=== PATIENT | male | born 1950 | race Asian ===

== ENCOUNTER 2019-03-20 08:13 | Emergency (ER) | payer OTHER ==
[2019-03-20] MEDS: METHYLPREDNISOLONE 125 MG INJ IM (09:18)
[2019-03-20] MEDS: ALBUTEROL 0.083% (NEB) 2.5 MG/3 ML AMP NEB (09:29)
[2019-03-20] MEDS: IPRATROPIUM (NEB) 0.5 MG/2.5 ML AMP NEB (09:29)
== END 2019-03-20 11:16 | disposition home or self-care (01) ==
LOC: FTE 08:13
DX: J40 Bronchitis, not specified as acute or chronic (principal); I10 Essential (primary) hypertension; E11.9 Type 2 diabetes mellitus without complications; J18.1 Lobar pneumonia, unspecified organism; J90 Pleural effusion, not elsewhere classified
CPT/HCPCS: 71045; 94664; 96372; 99284-25

== ENCOUNTER 2019-06-25 12:03 | Inpatient (IN) | payer OTHER ==
[~2019-06-25 12:03] MED LIST: ETOMIDATE 20 MG INJ; SUCCINYLCHOLINE CHLORIDE 100 MG/5 ML SYG IV
[2019-06-25] MEDS: ACETAMINOPHEN 650 MG SUPP PR (12:48)
[2019-06-25] MEDS: CEFEPIME 1GM/50 ML (PMX) 50 ML IVPB (12:49)
[2019-06-25] MEDS: SODIUM CHLORIDE 0.9% 1L BAG IV* (12:49)
[2019-06-25 13:01] LABS: ABNORMAL IP MESSAGE 1; HEMATOCRIT 32.7 % (42.0-52.0); HEMOGLOBIN 9.8 g/dl (14.0-18.0); MEAN CORPUSCULAR HEMOGLOBIN 28.3 pg (29.0-33.0); MEAN CORPUSCULAR VOLUME 94.5 fl (82.0-101.0); MEAN PLATELET VOLUME 9.1 fl (7.4-10.4); NUCLEATED RED BLOOD CELLS% 0.1 /100WBC (0.0-0.0); PLATELET COUNT 288 10^3/UL (140-415); POSITIVE DIFF @See below; RED BLOOD COUNT 3.46 10^6/ul (4.70-6.10); RED CELL DISTRIBUTION WIDTH 15.7 % (11.5-14.5)
[2019-06-25 13:01] LABS: WHITE BLOOD COUNT 28.3 10^3/ul (4.8-10.8)
[2019-06-25] MEDS: MIDAZOLAM (DRIP) 50 mg/50 mL 50 ML IV (13:12)
[2019-06-25 13:21] LABS: INR 1.04; PROTIME 13.7 Sec (11.9-14.9); PT RATIO 1.1
[2019-06-25 13:22] LABS: PARTIAL THROMBOPLASTIN TIME 33.5 Sec (23.0-35.0)
[2019-06-25] MEDS: VANCOMYCIN 1 GM (PMX) 250 ML IVPB (13:22)
[2019-06-25 13:25] LABS: ADD MAN DIFF? YES; ALANINE AMINOTRANSFERASE 16 IU/L (13-69); ALBUMIN 2.3 g/dl (3.3-4.9); ALBUMIN/GLOBULIN RATIO 0.74; ALKALINE PHOSPHATASE 93 IU/L (42-121); ANION GAP 1 (5-13); ASPARTATE AMINO TRANSFERASE 17 IU/L (15-46); BILIRUBIN,INDIRECT 0.5 mg/dl (0-1.1); BILIRUBIN,TOTAL 0.5 mg/dl (0.2-1.3); BLOOD UREA NITROGEN 30 mg/dl (7-20); CARBON DIOXIDE 37 mmol/L (21-31); CHLORIDE 106 mmol/L (97-110); CREATININE 1.05 mg/dl (0.61-1.24); Estimated GFR > 60 mL/min (>60); GLUCOSE 98 mg/dl (70-220); LIPASE 35 U/L (23-300); SODIUM 144 mmol/L (135-144); TOTAL PROTEIN 5.4 g/dl (6.1-8.1)
[2019-06-25 13:27] LABS: POTASSIUM 2.9 mmol/L (3.5-5.1)
[2019-06-25 13:35] LABS: CALCIUM 14.8 mg/dl (8.4-10.2)
[2019-06-25 13:36] LABS: TROPONIN-I 0.015 ng/ml (0.000-0.120)
[2019-06-25 13:36] LABS: LACTIC ACID 2.4 mmol/L (0.5-2.0)
[2019-06-25 13:51] LABS: ANISOCYTOSIS 1+ (0-0); BAND NEUTROPHILS #M 1.6 10^3/ul (0.0-0.6); BAND NEUTROPHILS % (M) 6 % (0-4); HYPOCHROMASIA 1+ (0-0); LYMPHOCYTES #M 1.6 10^3/ul (0.8-2.9); LYMPHOCYTES % (M) 6 % (15-51); MICROCYTOSIS 1+ (0-0); MYELOCYTES #M 0.2 10^3/ul (0.0-0.0); MYELOCYTES % (M) 1 % (0-0); PLATELET ESTIMATE NORMAL; POLYCHROMASIA 1+ (0-0); SEG NEUT #M 25.1 10^3/ul (1.6-7.5); SEGMENTED NEUTROPHILS (M) % 87 % (39-77)
[2019-06-25] MEDS: MAGNESIUM SULFATE 2 GM/50 ML 50 ML IVPB (14:05)
[2019-06-25] MEDS: POTASSIUM CHLORIDE 100 ML IVPB ×3 (14:05→21:13)
[2019-06-25] MEDS ORDERED: ONDANSETRON 4 MG INJ IV (15:00)
[2019-06-25] MEDS ORDERED: VANCOMYCIN IV PER PHARMACY XX (15:00)
[2019-06-25] MEDS ORDERED: NACL 0.9% 3 ML SYG IV (15:00)
[2019-06-25] MEDS: NS + KCL 20 MEQ 1,000 ML IV (15:41)
[2019-06-25 15:56] LABS: LACTIC ACID 1.7 mmol/L (0.5-2.0)
[2019-06-25] MEDS ORDERED: DEXTROSE 50% 50 ML SYRINGE IV ×2 (18:00)
[2019-06-25] MEDS ORDERED: GLUCOSE GEL 15 GRAM TUBE BUCCAL (18:00)
[2019-06-25] MEDS ORDERED: GLUCOSE GEL 15 GRAM TUBE PO ×2 (18:00)
[2019-06-25] MEDS ORDERED: GLUCAGON 1 MG INJ IM (18:00)
[2019-06-25] MEDS: NORepinephrine 8MG/250 ML (PMX 250 ML IV (18:45)
[2019-06-25 18:50] LABS: ANION GAP 0 (5-13); BLOOD UREA NITROGEN 29 mg/dl (7-20); CARBON DIOXIDE 31 mmol/L (21-31); CHLORIDE 113 mmol/L (97-110); CREATININE 0.94 mg/dl (0.61-1.24); Estimated GFR > 60 mL/min (>60); GLUCOSE 94 mg/dl (70-220); SODIUM 144 mmol/L (135-144)
[2019-06-25 18:57] LABS: POTASSIUM 2.5 mmol/L (3.5-5.1)
[2019-06-25] MEDS: PIPER-TAZO 3.375 GM IV (PMX) 100 ML IVPB (18:59)
[2019-06-25] MEDS: FAMOTIDINE 20 MG INJ IV (18:59)
[2019-06-25] MEDS: INSULIN ASPART [NOVOLOG] 3 ML PEN SC ×2 (19:00→20:48)
[2019-06-25 19:23] LABS: LACTIC ACID 1.9 mmol/L (0.5-2.0)
[2019-06-25 20:21] LABS: PARATHYROID HORMONE 13.1 pg/ml (24.0-73.0)
[2019-06-25 20:35] LABS: MAGNESIUM 2.6 mg/dl (1.7-2.5)
[2019-06-25] MEDS: CALCITONIN SALMON INJ 200 UNITS/ML SYG SC (21:47)
[2019-06-25] MEDS: ZOLEDRONIC ACID 4 MG in SOD CHLORIDE 0.9% 100 ML IVPB (21:47)
[2019-06-25 21:48] LABS: AADO2 Arterial 78.6 mmHg (7.0-24.0); Allen Test ACCEPTAB; Arterial Base Excess 2.8 mmol/L (-3.0-3); Arterial Blood Gas Oxygen Sat 97.2 mmHG (95.0-98.0); Arterial COHb 0.3 % (0.0-3.0); Arterial Fraction of Oxyhgb 96.4 % (93.0-99.0); Arterial HCO3 25.6 mmol/L (22.0-26.0); Arterial MetHb 0.5 % (0.0-1.5); Arterial pCO2 32.3 mmhg (35-45); MODE VENT - AC; Site Right Radial
[2019-06-26] MEDS: PIPER-TAZO 3.375 GM IV (PMX) 100 ML IVPB ×4 (00:25→18:30)
[2019-06-26] MEDS: NS + KCL 20 MEQ 1,000 ML IV ×4 (00:26→22:51)
[2019-06-26] MEDS: INSULIN ASPART [NOVOLOG] 3 ML PEN SC ×6 (00:59→22:28)
[2019-06-26 01:18] LABS: ANION GAP 1 (5-13); BLOOD UREA NITROGEN 28 mg/dl (7-20); CARBON DIOXIDE 32 mmol/L (21-31); CHLORIDE 113 mmol/L (97-110); CREATININE 1.08 mg/dl (0.61-1.24); Estimated GFR > 60 mL/min (>60); GLUCOSE 90 mg/dl (70-220); SODIUM 146 mmol/L (135-144)
[2019-06-26 01:31] LABS: CALCIUM 14.4 mg/dl (8.4-10.2); POTASSIUM 2.9 mmol/L (3.5-5.1)
[2019-06-26] MEDS: ACCU-CHEK XX (01:39)
[2019-06-26] MEDS: POTASSIUM CHLORIDE 100 ML IVPB ×3 (02:05→05:59)
[2019-06-26 05:05] LABS: ADD MAN DIFF? NO
[2019-06-26 05:10] LABS: WHITE BLOOD COUNT 25.7 10^3/ul (4.8-10.8)
[2019-06-26 05:10] LABS: ABNORMAL IP MESSAGE 1; BASOPHIL # 0.1 10^3/ul (0.0-0.1); BASOPHILS % 0.4 % (0.0-2.0); EOSINOPHILS # 0.2 10^3/ul (0.0-0.5); EOSINOPHILS % 0.8 % (0.0-7.0); HEMATOCRIT 27.1 % (42.0-52.0); HEMOGLOBIN 8.1 g/dl (14.0-18.0); LYMPHOCYTES # 0.8 10^3/ul (0.8-2.9); LYMPHOCYTES % 3.2 % (15.0-51.0); MEAN CORPUSCULAR HEMOGLOBIN 28.2 pg (29.0-33.0); MEAN CORPUSCULAR HGB CONC 29.9 g/dl (32.0-37.0); MEAN CORPUSCULAR VOLUME 94.4 fl (82.0-101.0); MEAN PLATELET VOLUME 9.2 fl (7.4-10.4); MONOCYTE # 0.7 10^3/ul (0.3-0.9); MONOCYTES % 2.9 % (0.0-11.0); NEUTROPHIL # 23.5 10^3/ul (1.6-7.5); NEUTROPHILS % 91.4 % (39.0-77.0); PLATELET COUNT 215 10^3/UL (140-415); POSITIVE DIFF @See below; RED BLOOD COUNT 2.87 10^6/ul (4.70-6.10); RED CELL DISTRIBUTION WIDTH 15.9 % (11.5-14.5)
[2019-06-26 05:18] LABS: HEMOGLOBIN A1C 6.1 % (0-5.9)
[2019-06-26 05:33] LABS: ALANINE AMINOTRANSFERASE 20 IU/L (13-69); ALBUMIN 2.1 g/dl (3.3-4.9); ALBUMIN/GLOBULIN RATIO 0.65; ALKALINE PHOSPHATASE 100 IU/L (42-121); ANION GAP 1 (5-13); ASPARTATE AMINO TRANSFERASE 20 IU/L (15-46); BILIRUBIN,INDIRECT 0.8 mg/dl (0-1.1); BILIRUBIN,TOTAL 0.8 mg/dl (0.2-1.3); BLOOD UREA NITROGEN 27 mg/dl (7-20); CARBON DIOXIDE 31 mmol/L (21-31); CHLORIDE 116 mmol/L (97-110); CREATININE 1.12 mg/dl (0.61-1.24); Estimated GFR > 60 mL/min (>60); GLUCOSE 98 mg/dl (70-220); MAGNESIUM 2.4 mg/dl (1.7-2.5); PHOSPHORUS 2.1 mg/dl (2.5-4.9); POTASSIUM 3.5 mmol/L (3.5-5.1); SODIUM 148 mmol/L (135-144); TOTAL PROTEIN 5.3 g/dl (6.1-8.1)
[2019-06-26 05:39] LABS: CALCIUM 13.6 mg/dl (8.4-10.2)
[2019-06-26] MEDS ORDERED: PANTOPRAZOLE 40 MG INJ IV (06:00)
[2019-06-26 07:44] LABS: AADO2 Arterial 61.9 mmHg (7.0-24.0); Allen Test ACCEPTAB; Arterial Base Excess 3.4 mmol/L (-3.0-3); Arterial Blood Gas Oxygen Sat 97.7 mmHG (95.0-98.0); Arterial COHb 0.3 % (0.0-3.0); Arterial Fraction of Oxyhgb 96.9 % (93.0-99.0); Arterial HCO3 26.9 mmol/L (22.0-26.0); Arterial MetHb 0.5 % (0.0-1.5); Arterial pCO2 36.7 mmhg (35-45); MODE VENT - AC; Site Right Radial
[2019-06-26] MEDS: FUROSEMIDE 20 MG INJ IV (08:43)
[2019-06-26] MEDS: FAMOTIDINE 20 MG INJ IV (08:44)
[2019-06-26] MEDS: ENOXAPARIN 40 MG/0.4 ML SYG SC (08:47)
[2019-06-26] MEDS: CALCITONIN SALMON INJ 200 UNITS/ML SYG SC (10:57)
[2019-06-26] MEDS: POTASSIUM PHOSPHATE 20 MEQ in SOD CHLORIDE 0.9% 250 ML IVPB (11:53)
[2019-06-26 13:33] LABS: ANION GAP 3 (5-13); BLOOD UREA NITROGEN 27 mg/dl (7-20); CARBON DIOXIDE 31 mmol/L (21-31); CHLORIDE 116 mmol/L (97-110); CREATININE 1.19 mg/dl (0.61-1.24); Estimated GFR > 60 mL/min (>60); GLUCOSE 103 mg/dl (70-220); POTASSIUM 4.1 mmol/L (3.5-5.1); SODIUM 150 mmol/L (135-144)
[2019-06-26] MEDS: VANCOMYCIN 1.25 GM/NS 250 ML 250 ML IVPB (14:04)
[2019-06-26 19:44] LABS: MAGNESIUM 2.1 mg/dl (1.7-2.5)
[2019-06-27] MEDS: PIPER-TAZO 3.375 GM IV (PMX) 100 ML IVPB ×5 (00:03→23:47)
[2019-06-27] MEDS: INSULIN ASPART [NOVOLOG] 3 ML PEN SC ×6 (01:13→21:11)
[2019-06-27] MEDS: ACCU-CHEK XX (02:00)
[2019-06-27] MEDS: NS + KCL 20 MEQ 1,000 ML IV (05:01)
[2019-06-27 06:07] LABS: ADD MAN DIFF? NO
[2019-06-27 06:16] LABS: WHITE BLOOD COUNT 21.3 10^3/ul (4.8-10.8)
[2019-06-27 06:16] LABS: ABNORMAL IP MESSAGE 1; BASOPHIL # 0.1 10^3/ul (0.0-0.1); BASOPHILS % 0.3 % (0.0-2.0); EOSINOPHILS # 0.1 10^3/ul (0.0-0.5); EOSINOPHILS % 0.2 % (0.0-7.0); HEMATOCRIT 26.6 % (42.0-52.0); HEMOGLOBIN 7.7 g/dl (14.0-18.0); LYMPHOCYTES # 0.8 10^3/ul (0.8-2.9); LYMPHOCYTES % 3.7 % (15.0-51.0); MEAN CORPUSCULAR HEMOGLOBIN 27.8 pg (29.0-33.0); MEAN CORPUSCULAR HGB CONC 28.9 g/dl (32.0-37.0); MEAN PLATELET VOLUME 9.7 fl (7.4-10.4); MONOCYTE # 0.7 10^3/ul (0.3-0.9); MONOCYTES % 3.4 % (0.0-11.0); NEUTROPHIL # 19.4 10^3/ul (1.6-7.5); PLATELET COUNT 200 10^3/UL (140-415); POSITIVE DIFF @See below; RED BLOOD COUNT 2.77 10^6/ul (4.70-6.10); RED CELL DISTRIBUTION WIDTH 16.5 % (11.5-14.5)
[2019-06-27 06:22] LABS: NEUTROPHILS % 91.1 % (39.0-77.0)
[2019-06-27 06:39] LABS: ANION GAP 2 (5-13); BLOOD UREA NITROGEN 31 mg/dl (7-20); CALCIUM 11.5 mg/dl (8.4-10.2); CARBON DIOXIDE 30 mmol/L (21-31); CHLORIDE 119 mmol/L (97-110); CREATININE 1.18 mg/dl (0.61-1.24); Estimated GFR > 60 mL/min (>60); GLUCOSE 169 mg/dl (70-220); MAGNESIUM 2.1 mg/dl (1.7-2.5); PHOSPHORUS 2.2 mg/dl (2.5-4.9); POTASSIUM 3.8 mmol/L (3.5-5.1); SODIUM 151 mmol/L (135-144)
[2019-06-27] MEDS: SOD CHLORIDE 0.45% 1,000 ML IV (08:07)
[2019-06-27] MEDS: FAMOTIDINE 20 MG INJ IV (08:54)
[2019-06-27] MEDS: ENOXAPARIN 40 MG/0.4 ML SYG SC (09:06)
[2019-06-27 09:17] LABS: ADD UMIC YES; UR ASCORBIC ACID NEGATIVE (NEGATIVE); UR BILIRUBIN (Dip) NEGATIVE (NEGATIVE); UR BLOOD (Dip) 1+ mg/dL (NEGATIVE); UR CLARITY CLEAR (CLEAR); UR COLOR BLUE (YELLOW); UR GLUCOSE (Dip) NEGATIVE (NEGATIVE); UR KETONES (Dip) NEGATIVE (NEGATIVE); UR LEUKOCYTE ESTERASE (Dip) NEGATIVE Leu/ul (NEGATIVE); UR MUCUS FEW /HPF (NONE SEEN); UR NITRITE (Dip) NEGATIVE (NEGATIVE); UR RBC 1 /HPF (0-5); UR SPECIFIC GRAVITY (Dip) 1.013 (1.003-1.030); UR TOTAL PROTEIN (Dip) NEGATIVE (NEGATIVE); UR UROBILINOGEN (Dip) NEGATIVE (NEGATIVE); UR WBC 8 /HPF (0-5)
[2019-06-27 09:41] LABS: CREATININE,URINE RANDOM 30.51 mg/dl (20-370)
[2019-06-27 09:41] LABS: SODIUM,URINE RANDOM 42 mmol/L (30-90)
[2019-06-27 09:45] LABS: ANISOCYTOSIS 2+ (0-0); BAND NEUTROPHILS #M 1.4 10^3/ul (0.0-0.6); BAND NEUTROPHILS % (M) 7 % (0-4); GIANT THROMBO% (M) 1 % (0-0); LYMPHOCYTES #M 1.4 10^3/ul (0.8-2.9); LYMPHOCYTES % (M) 7 % (15-51); MONOCYTE #M 0.4 10^3/ul (0.3-0.9); MONOCYTES % (M) 2 % (0-11); MYELOCYTES #M 0.2 10^3/ul (0.0-0.0); MYELOCYTES % (M) 1 % (0-0); PLATELET ESTIMATE NORMAL; POIKILOCYTOSIS 1+ (0-0); POLYCHROMASIA 3+ (0-0); SEGMENTED NEUTROPHILS (M) % 83 % (39-77); SMUDGE%M 62 % (0-0)
[2019-06-27] MEDS: VANCOMYCIN 1.25 GM/NS 250 ML 250 ML IVPB (13:04)
[2019-06-28] MEDS: INSULIN ASPART [NOVOLOG] 3 ML PEN SC ×6 (01:22→21:04)
[2019-06-28] MEDS: ACCU-CHEK XX (02:00)
[2019-06-28] MEDS: SOD CHLORIDE 0.45% 1,000 ML IV (04:24)
[2019-06-28] MEDS: PIPER-TAZO 3.375 GM IV (PMX) 100 ML IVPB ×4 (05:37→23:37)
[2019-06-28 05:56] LABS: ABNORMAL IP MESSAGE 1; HEMATOCRIT 23.9 % (42.0-52.0); MEAN CORPUSCULAR HEMOGLOBIN 28.2 pg (29.0-33.0); MEAN CORPUSCULAR HGB CONC 28.9 g/dl (32.0-37.0); MEAN CORPUSCULAR VOLUME 97.6 fl (82.0-101.0); MEAN PLATELET VOLUME 9.9 fl (7.4-10.4); PLATELET COUNT 167 10^3/UL (140-415); POSITIVE DIFF @See below; RED BLOOD COUNT 2.45 10^6/ul (4.70-6.10); RED CELL DISTRIBUTION WIDTH 16.4 % (11.5-14.5)
[2019-06-28 05:56] LABS: WHITE BLOOD COUNT 16.9 10^3/ul (4.8-10.8)
[2019-06-28 06:07] LABS: LACTIC ACID 1.9 mmol/L (0.5-2.0)
[2019-06-28 06:15] LABS: HEMOGLOBIN 6.9 g/dl (14.0-18.0)
[2019-06-28 06:16] LABS: ADD MAN DIFF? YES; PATH REVIEW? YES
[2019-06-28 06:35] LABS: ANION GAP 2 (5-13); BLOOD UREA NITROGEN 23 mg/dl (7-20); CALCIUM 10.3 mg/dl (8.4-10.2); CARBON DIOXIDE 30 mmol/L (21-31); CHLORIDE 120 mmol/L (97-110); CREATININE 0.96 mg/dl (0.61-1.24); Estimated GFR > 60 mL/min (>60); GLUCOSE 125 mg/dl (70-220); MAGNESIUM 1.8 mg/dl (1.7-2.5); PHOSPHORUS 2.2 mg/dl (2.5-4.9); POTASSIUM 3.1 mmol/L (3.5-5.1); SODIUM 152 mmol/L (135-144)
[2019-06-28] MEDS: ENOXAPARIN 40 MG/0.4 ML SYG SC (09:00)
[2019-06-28 09:27] LABS: ANISOCYTOSIS 1+ (0-0); BAND NEUTROPHILS #M 0.5 10^3/ul (0.0-0.6); BAND NEUTROPHILS % (M) 3 % (0-4); LYMPHOCYTES #M 1.1 10^3/ul (0.8-2.9); LYMPHOCYTES % (M) 7 % (15-51); METAMYELOCYTES #M 0.3 10^3/ul (0.0-0.0); METAMYELOCYTES %M 2 % (0-0); MONOCYTE #M 1.3 10^3/ul (0.3-0.9); MONOCYTES % (M) 8 % (0-11); PLATELET ESTIMATE NORMAL; POIKILOCYTOSIS 1+ (0-0); SEG NEUT #M 13.6 10^3/ul (1.6-7.5); SEGMENTED NEUTROPHILS (M) % 80 % (39-77); SMUDGE%M 3 % (0-0)
[2019-06-28] MEDS: FAMOTIDINE 20 MG INJ IV (09:50)
[2019-06-28] MEDS: DEXTROSE 5% 1,000 ML IV (10:00)
[2019-06-28 10:47] LABS: IMMEDIATE SPIN CROSSMATCH 1 2
[2019-06-28] MEDS: FUROSEMIDE 20 MG INJ IV (14:10)
[2019-06-28] MEDS: POTASSIUM PHOSPHATE 20 MEQ in SOD CHLORIDE 0.9% 250 ML IVPB (15:56)
[2019-06-28] MEDS: SOD CHLORIDE 0.9% 100 ML (16:15)
[2019-06-28] MEDS: IOHEXOL 300MG/ML 150 ML BTL (16:15)
[2019-06-28] MEDS ORDERED: IPRATROPIUM (NEB) 0.5 MG/2.5 ML AMP HHN (19:00)
[2019-06-29] MEDS: INSULIN ASPART [NOVOLOG] 3 ML PEN SC ×6 (01:00→20:44)
[2019-06-29] MEDS: ACCU-CHEK XX (01:11)
[2019-06-29] MEDS: morphine 2 MG INJ IV ×3 (01:40→22:00)
[2019-06-29 05:06] LABS: ADD MAN DIFF? NO
[2019-06-29 05:21] LABS: AADO2 Arterial 29.5 mmHg (7.0-24.0); Arterial Base Excess 3.3 mmol/L (-3.0-3); Arterial Blood Gas Oxygen Sat 98.5 mmHG (95.0-98.0); Arterial COHb 0.3 % (0.0-3.0); Arterial Fraction of Oxyhgb 97.7 % (93.0-99.0); Arterial HCO3 27.2 mmol/L (22.0-26.0); Arterial MetHb 0.5 % (0.0-1.5); Arterial pCO2 38.3 mmhg (35-45); MODE VENT - AC; Site Right Brachial
[2019-06-29 05:35] LABS: LACTIC ACID 1.8 mmol/L (0.5-2.0)
[2019-06-29] MEDS: PIPER-TAZO 3.375 GM IV (PMX) 100 ML IVPB ×3 (05:58→17:33)
[2019-06-29 06:06] LABS: BASOPHILS % 0.3 % (0.0-2.0); EOSINOPHILS # 0.1 10^3/ul (0.0-0.5); EOSINOPHILS % 0.9 % (0.0-7.0); HEMATOCRIT 23.6 % (42.0-52.0); LYMPHOCYTES # 0.8 10^3/ul (0.8-2.9); LYMPHOCYTES % 5.4 % (15.0-51.0); MEAN CORPUSCULAR HEMOGLOBIN 28.6 pg (29.0-33.0); MEAN CORPUSCULAR HGB CONC 29.7 g/dl (32.0-37.0); MEAN CORPUSCULAR VOLUME 96.3 fl (82.0-101.0); MEAN PLATELET VOLUME 9.8 fl (7.4-10.4); MONOCYTE # 0.6 10^3/ul (0.3-0.9); MONOCYTES % 4.4 % (0.0-11.0); NEUTROPHIL # 12.3 10^3/ul (1.6-7.5); NEUTROPHILS % 87.7 % (39.0-77.0); PLATELET COUNT 142 10^3/UL (140-415); RED BLOOD COUNT 2.45 10^6/ul (4.70-6.10); RED CELL DISTRIBUTION WIDTH 16.4 % (11.5-14.5)
[2019-06-29 06:10] LABS: ANION GAP 2 (5-13); BLOOD UREA NITROGEN 19 mg/dl (7-20); CALCIUM 9.6 mg/dl (8.4-10.2); CARBON DIOXIDE 29 mmol/L (21-31); CHLORIDE 121 mmol/L (97-110); CREATININE 0.93 mg/dl (0.61-1.24); Estimated GFR > 60 mL/min (>60); GLUCOSE 141 mg/dl (70-220); MAGNESIUM 1.7 mg/dl (1.7-2.5); PHOSPHORUS 2.8 mg/dl (2.5-4.9); SODIUM 152 mmol/L (135-144)
[2019-06-29 06:51] LABS: POTASSIUM 2.7 mmol/L (3.5-5.1)
[2019-06-29] MEDS: DEXTROSE 5% 1,000 ML IV (07:51)
[2019-06-29] MEDS: POTASSIUM CHLORIDE 20 MEQ POWDER FOR ORAL SOLN GTB (07:51)
[2019-06-29 08:06] LABS: OCCULT BLOOD STOOL NEGATIVE (NEGATIVE)
[2019-06-29 08:56] LABS: TRIIODOTHYRONINE 0.49 ng/ml (0.97-1.69)
[2019-06-29] MEDS: FAMOTIDINE 20 MG INJ IV (09:20)
[2019-06-29] MEDS: POTASSIUM CHLORIDE 100 ML IVPB ×2 (09:20→13:27)
[2019-06-29 09:35] LABS: AADO2 Arterial 40.5 mmHg (7.0-24.0); Allen Test ACCEPTAB; Arterial Base Excess 2.2 mmol/L (-3.0-3); Arterial Blood Gas Oxygen Sat 98.4 mmHG (95.0-98.0); Arterial COHb 0.3 % (0.0-3.0); Arterial Fraction of Oxyhgb 97.5 % (93.0-99.0); Arterial MetHb 0.6 % (0.0-1.5); Arterial pCO2 37.2 mmhg (35-45); Blood Gas PS 10; MODE VENT - CPAP; Site Right Radial
[2019-06-29 11:14] LABS: PROCALCITONIN 0.21 ng/mL (0.00-0.10)
[2019-06-29 12:49] LABS: HEMATOCRIT 25.3 % (42.0-52.0); HEMOGLOBIN 7.3 g/dl (14.0-18.0)
[2019-06-29 12:51] LABS: CREATININE, RANDOM URINE 33 mg/dL (20-320); MICROALBUMIN 2.4 mg/dL; MICROALBUMIN/CREATININE RATIO 73 (<30)
[2019-06-29] MEDS: FUROSEMIDE 20 MG INJ IV (13:26)
[2019-06-29 15:26] LABS: ANION GAP 4 (5-13); BLOOD UREA NITROGEN 20 mg/dl (7-20); CALCIUM 9.7 mg/dl (8.4-10.2); CARBON DIOXIDE 28 mmol/L (21-31); CHLORIDE 120 mmol/L (97-110); CREATININE 0.86 mg/dl (0.61-1.24); Estimated GFR > 60 mL/min (>60); GLUCOSE 155 mg/dl (70-220); POTASSIUM 3.8 mmol/L (3.5-5.1); SODIUM 152 mmol/L (135-144)
[2019-06-29 15:42] LABS: RAPID PLASMA REAGIN NONREACTIVE (NR)
[2019-06-29 15:58] LABS: OCCULT BLOOD STOOL NEGATIVE (NEGATIVE)
[2019-06-29 20:09] LABS: HEMATOCRIT 21.9 % (42.0-52.0)
[2019-06-29 20:17] LABS: HEMOGLOBIN 6.4 g/dl (14.0-18.0)
[2019-06-29] MEDS: SOD CHLORIDE 0.9% 250 ML IV* (20:56)
[2019-06-29] MEDS: BARIUM SULF 2% 450 ML BTL (BERRY SMOOTHIE) PO (23:30)
[2019-06-30] MEDS: INSULIN ASPART [NOVOLOG] 3 ML PEN SC ×6 (00:21→21:00)
[2019-06-30] MEDS: PIPER-TAZO 3.375 GM IV (PMX) 100 ML IVPB ×4 (00:27→17:30)
[2019-06-30 01:08] LABS: IMMEDIATE SPIN CROSSMATCH 1 2
[2019-06-30] MEDS: ACCU-CHEK XX (02:00)
[2019-06-30] MEDS: DEXTROSE 5% 1,000 ML IV ×2 (03:30→05:09)
[2019-06-30] MEDS: morphine 2 MG INJ IV ×2 (04:25→22:47)
[2019-06-30 05:23] LABS: ABNORMAL IP MESSAGE 1; HEMATOCRIT 23.5 % (42.0-52.0); MEAN CORPUSCULAR HEMOGLOBIN 28.9 pg (29.0-33.0); MEAN CORPUSCULAR HGB CONC 29.4 g/dl (32.0-37.0); MEAN CORPUSCULAR VOLUME 98.3 fl (82.0-101.0); MEAN PLATELET VOLUME 10.6 fl (7.4-10.4); PLATELET COUNT 116 10^3/UL (140-415); POSITIVE DIFF @See below; RED BLOOD COUNT 2.39 10^6/ul (4.70-6.10); RED CELL DISTRIBUTION WIDTH 15.8 % (11.5-14.5)
[2019-06-30 05:23] LABS: WHITE BLOOD COUNT 11.5 10^3/ul (4.8-10.8)
[2019-06-30 05:35] LABS: ADD MAN DIFF? YES; HEMOGLOBIN 6.9 g/dl (14.0-18.0)
[2019-06-30 05:43] LABS: ANION GAP 4 (5-13); BLOOD UREA NITROGEN 16 mg/dl (7-20); CALCIUM 8.1 mg/dl (8.4-10.2); CARBON DIOXIDE 27 mmol/L (21-31); CHLORIDE 107 mmol/L (97-110); CREATININE 0.73 mg/dl (0.61-1.24); Estimated GFR > 60 mL/min (>60); SODIUM 138 mmol/L (135-144)
[2019-06-30] MEDS: SOD CHLORIDE 0.9% 250 ML IV* (05:52)
[2019-06-30 06:25] LABS: GLUCOSE 472 mg/dl (70-220); POTASSIUM 2.5 mmol/L (3.5-5.1)
[2019-06-30] MEDS ORDERED: POTASSIUM CHLORIDE 50 ML (06:42)
[2019-06-30] MEDS: POTASSIUM CHLORIDE 50 ML IVPB ×3 (06:51→11:34)
[2019-06-30 07:03] LABS: BAND NEUTROPHILS #M 2.4 10^3/ul (0.0-0.6); BAND NEUTROPHILS % (M) 21 % (0-4); EOSINOPHILS % (M) 4 % (0-7); LYMPHOCYTES #M 0.3 10^3/ul (0.8-2.9); LYMPHOCYTES % (M) 3 % (15-51); METAMYELOCYTES #M 0.1 10^3/ul (0.0-0.0); METAMYELOCYTES %M 1 % (0-0); MONOCYTE #M 0.1 10^3/ul (0.3-0.9); MONOCYTES % (M) 1 % (0-11); OVALOCYTES 1+ (0-0); PLATELET ESTIMATE DECREASED; POLYCHROMASIA 1+ (0-0); SEG NEUT #M 8.3 10^3/ul (1.6-7.5); SEGMENTED NEUTROPHILS (M) % 70 % (39-77); SMUDGE%M 35 % (0-0)
[2019-06-30] MEDS ORDERED: MAGNESIUM SULFATE 2 GM/50 ML 50 ML (07:07)
[2019-06-30 07:13] LABS: AADO2 Arterial 51.8 mmHg (7.0-24.0); Allen Test ACCEPTAB; Arterial Base Excess 0.6 mmol/L (-3.0-3); Arterial Blood Gas Oxygen Sat 98.2 mmHG (95.0-98.0); Arterial COHb 0.3 % (0.0-3.0); Arterial Fraction of Oxyhgb 97.4 % (93.0-99.0); Arterial MetHb 0.5 % (0.0-1.5); Arterial pCO2 33.6 mmhg (35-45); MODE VENT - AC; Site Right Radial
[2019-06-30] MEDS: MAGNESIUM SULFATE 2 GM/50 ML 50 ML IVPB (07:16)
[2019-06-30 07:19] LABS: MAGNESIUM 1.5 mg/dl (1.7-2.5)
[2019-06-30] MEDS: FUROSEMIDE 20 MG INJ IV (08:48)
[2019-06-30] MEDS: FAMOTIDINE 20 MG TAB PO (08:48)
[2019-06-30 10:03] LABS: AADO2 Arterial 62.9 mmHg (7.0-24.0); Arterial Base Excess 2.7 mmol/L (-3.0-3); Arterial Blood Gas Oxygen Sat 97.6 mmHG (95.0-98.0); Arterial COHb 0.3 % (0.0-3.0); Arterial Fraction of Oxyhgb 96.9 % (93.0-99.0); Arterial MetHb 0.4 % (0.0-1.5); Arterial pCO2 40.4 mmhg (35-45); Blood Gas PS 10; MODE VENT - CPAP; Site Right Brachial
[2019-06-30] MEDS: IPRATROPIUM (NEB) 0.5 MG/2.5 ML AMP HHN ×3 (10:56→19:53)
[2019-06-30] MEDS: LEVALBUTEROL (NEB) 0.63 MG/3 ML AMP HHN ×3 (10:57→19:53)
[2019-06-30 15:06] LABS: HEMATOCRIT 29.9 % (42.0-52.0); HEMOGLOBIN 9.2 g/dl (14.0-18.0)
[2019-06-30 15:20] LABS: MAGNESIUM 1.9 mg/dl (1.7-2.5)
[2019-06-30 15:20] LABS: POTASSIUM 3.4 mmol/L (3.5-5.1)
[2019-07-01] MEDS: PIPER-TAZO 3.375 GM IV (PMX) 100 ML IVPB ×3 (00:11→12:09)
[2019-07-01] MEDS: INSULIN ASPART [NOVOLOG] 3 ML PEN SC ×6 (00:29→20:21)
[2019-07-01] MEDS: LEVALBUTEROL (NEB) 0.63 MG/3 ML AMP HHN ×4 (01:45→20:17)
[2019-07-01] MEDS: IPRATROPIUM (NEB) 0.5 MG/2.5 ML AMP HHN ×4 (01:45→20:16)
[2019-07-01] MEDS: ACCU-CHEK XX (02:00)
[2019-07-01 05:53] LABS: WHITE BLOOD COUNT 13.7 10^3/ul (4.8-10.8)
[2019-07-01 05:53] LABS: HEMATOCRIT 30.7 % (42.0-52.0); HEMOGLOBIN 9.4 g/dl (14.0-18.0); MEAN CORPUSCULAR HEMOGLOBIN 29.1 pg (29.0-33.0); MEAN CORPUSCULAR HGB CONC 30.6 g/dl (32.0-37.0); MEAN PLATELET VOLUME 10.6 fl (7.4-10.4); NUCLEATED RED BLOOD CELLS% 0.1 /100WBC (0.0-0.0); PLATELET COUNT 128 10^3/UL (140-415); POSITIVE DIFF @See below; RED BLOOD COUNT 3.23 10^6/ul (4.70-6.10); RED CELL DISTRIBUTION WIDTH 15.2 % (11.5-14.5)
[2019-07-01 06:09] LABS: ADD MAN DIFF? YES
[2019-07-01 06:28] LABS: MAGNESIUM 1.9 mg/dl (1.7-2.5)
[2019-07-01 06:40] LABS: ALANINE AMINOTRANSFERASE 18 IU/L (13-69); ALBUMIN 2.3 g/dl (3.3-4.9); ALBUMIN/GLOBULIN RATIO 0.63; ALKALINE PHOSPHATASE 128 IU/L (42-121); ANION GAP 5 (5-13); ASPARTATE AMINO TRANSFERASE 25 IU/L (15-46); BILIRUBIN,INDIRECT 1.1 mg/dl (0-1.1); BILIRUBIN,TOTAL 1.1 mg/dl (0.2-1.3); BLOOD UREA NITROGEN 14 mg/dl (7-20); CALCIUM 8.9 mg/dl (8.4-10.2); CARBON DIOXIDE 30 mmol/L (21-31); CHLORIDE 116 mmol/L (97-110); CREATININE 0.75 mg/dl (0.61-1.24); Estimated GFR > 60 mL/min (>60); GLUCOSE 114 mg/dl (70-220); SODIUM 151 mmol/L (135-144); TOTAL PROTEIN 5.9 g/dl (6.1-8.1)
[2019-07-01 06:45] LABS: POTASSIUM 2.6 mmol/L (3.5-5.1)
[2019-07-01 07:46] LABS: ANISOCYTOSIS 1+ (0-0); BAND NEUTROPHILS % (M) 8 % (0-4); BASOPHIL #M 0.1 10^3/ul (0.0-0.0); BASOPHILS % (M) 1 % (0-2); LYMPHOCYTES #M 1.3 10^3/ul (0.8-2.9); LYMPHOCYTES % (M) 10 % (15-51); MONOCYTE #M 0.6 10^3/ul (0.3-0.9); MONOCYTES % (M) 5 % (0-11); OVALOCYTES 1+ (0-0); PLATELET ESTIMATE DECREASED; POIKILOCYTOSIS 1+ (0-0); POLYCHROMASIA 3+ (0-0); PROMYELOCYTES #M 0.1 10^3/ul (0-0); PROMYELOCYTES % (M) 1 % (0-0); REACTIVE LYMPHOCYTES #M 0.1 10^3/ul (0.0-0.0); REACTIVE LYMPHOCYTES% (M) 1 % (0-0); SEG NEUT #M 10.3 10^3/ul (1.6-7.5); SEGMENTED NEUTROPHILS (M) % 74 % (39-77); SMUDGE%M 1 % (0-0); TARGET CELLS 1+ (0-0)
[2019-07-01] MEDS: POTASSIUM CHLORIDE 100 ML IVPB ×3 (07:57→14:38)
[2019-07-01] MEDS: MEGESTROL (40 MG/ML) 10ML CUP PO (08:43)
[2019-07-01] MEDS: FAMOTIDINE 20 MG TAB PO (08:43)
[2019-07-01] MEDS: MAGNESIUM SULFATE 2 GM/50 ML 50 ML IVPB (10:11)
[2019-07-01 16:26] LABS: ANION GAP 4 (5-13); BLOOD UREA NITROGEN 13 mg/dl (7-20); CALCIUM 8.9 mg/dl (8.4-10.2); CARBON DIOXIDE 30 mmol/L (21-31); CHLORIDE 117 mmol/L (97-110); CREATININE 0.73 mg/dl (0.61-1.24); Estimated GFR > 60 mL/min (>60); GLUCOSE 102 mg/dl (70-220); SODIUM 151 mmol/L (135-144)
[2019-07-01] MEDS: D5W + KCL 20 MEQ 1,000 ML IV (16:35)
[2019-07-01 17:10] LABS: POTASSIUM 2.7 mmol/L (3.5-5.1)
[2019-07-01] MEDS: LEVOFLOXACIN 500 MG TAB PO (17:52)
[2019-07-01] MEDS: HYDROCODONE/APAP (5/325) TAB PO (21:37)
[2019-07-02] MEDS: INSULIN ASPART [NOVOLOG] 3 ML PEN SC ×6 (01:00→21:43)
[2019-07-02] MEDS: LEVALBUTEROL (NEB) 0.63 MG/3 ML AMP HHN ×3 (01:46→15:58)
[2019-07-02] MEDS: IPRATROPIUM (NEB) 0.5 MG/2.5 ML AMP HHN ×3 (01:46→15:57)
[2019-07-02] MEDS: ACCU-CHEK XX (02:09)
[2019-07-02] MEDS: D5W + KCL 20 MEQ 1,000 ML IV (03:50)
[2019-07-02 05:35] LABS: ADD MAN DIFF? NO
[2019-07-02 05:41] LABS: BASOPHILS % 0.3 % (0.0-2.0); EOSINOPHILS # 0.3 10^3/ul (0.0-0.5); EOSINOPHILS % 2.1 % (0.0-7.0); HEMATOCRIT 29.9 % (42.0-52.0); HEMOGLOBIN 9.1 g/dl (14.0-18.0); LYMPHOCYTES # 0.7 10^3/ul (0.8-2.9); LYMPHOCYTES % 5.7 % (15.0-51.0); MEAN CORPUSCULAR HGB CONC 30.4 g/dl (32.0-37.0); MEAN CORPUSCULAR VOLUME 95.2 fl (82.0-101.0); MEAN PLATELET VOLUME 10.6 fl (7.4-10.4); MONOCYTE # 0.5 10^3/ul (0.3-0.9); MONOCYTES % 4.2 % (0.0-11.0); NEUTROPHIL # 10.6 10^3/ul (1.6-7.5); NUCLEATED RED BLOOD CELLS% 0.2 /100WBC (0.0-0.0); PLATELET COUNT 125 10^3/UL (140-415); POSITIVE DIFF @See below; RED BLOOD COUNT 3.14 10^6/ul (4.70-6.10); RED CELL DISTRIBUTION WIDTH 15.4 % (11.5-14.5)
[2019-07-02 05:41] LABS: WHITE BLOOD COUNT 12.3 10^3/ul (4.8-10.8)
[2019-07-02 06:02] LABS: ANION GAP 5 (5-13); BLOOD UREA NITROGEN 13 mg/dl (7-20); CALCIUM 9.1 mg/dl (8.4-10.2); CARBON DIOXIDE 29 mmol/L (21-31); CHLORIDE 116 mmol/L (97-110); Estimated GFR > 60 mL/min (>60); GLUCOSE 144 mg/dl (70-220); MAGNESIUM 1.9 mg/dl (1.7-2.5); PHOSPHORUS 1.8 mg/dl (2.5-4.9); SODIUM 150 mmol/L (135-144)
[2019-07-02 06:04] LABS: POTASSIUM 2.6 mmol/L (3.5-5.1)
[2019-07-02] MEDS: LEVOFLOXACIN 500 MG TAB PO (06:29)
[2019-07-02 07:07] LABS: POTASSIUM 2.6 mmol/L (3.5-5.1)
[2019-07-02] MEDS: POTASSIUM CHLORIDE 100 ML IVPB ×3 (07:36→12:22)
[2019-07-02 07:45] LABS: BAND NEUTROPHILS #M 1.4 10^3/ul (0.0-0.6); BAND NEUTROPHILS % (M) 12 % (0-4); BURR CELLS 1+ (0-0); EOSINOPHILS % (M) 6 % (0-7); LYMPHOCYTES #M 0.6 10^3/ul (0.8-2.9); LYMPHOCYTES % (M) 5 % (15-51); PLATELET ESTIMATE DECREASED; POIKILOCYTOSIS 1+ (0-0); POLYCHROMASIA 1+ (0-0); REACTIVE LYMPHOCYTES #M 0.1 10^3/ul (0.0-0.0); REACTIVE LYMPHOCYTES% (M) 1 % (0-0); SEG NEUT #M 9.5 10^3/ul (1.6-7.5); SEGMENTED NEUTROPHILS (M) % 76 % (39-77); SMUDGE%M 26 % (0-0)
[2019-07-02] MEDS: MAGNESIUM SULFATE 2 GM/50 ML 50 ML IVPB (08:07)
[2019-07-02] MEDS: POTASSIUM CHLORIDE (SR) 20 MEQ TAB PO ×2 (08:09→22:34)
[2019-07-02] MEDS: FAMOTIDINE 20 MG TAB PO (08:09)
[2019-07-02] MEDS: NEUTRA-PHOS 250 MG PACKET PO ×2 (08:09→20:45)
[2019-07-02] MEDS: DOCUSATE SODIUM 100 MG CAP PO (08:09)
[2019-07-02] MEDS: SPIRONOLACTONE 50 MG TAB PO (10:10)
[2019-07-02] MEDS: POTASSIUM CHLORIDE 40 MEQ in DEXTROSE 5% 1,000 ML IV ×2 (10:11→18:03)
[2019-07-02 10:49] LABS: MAGNESIUM 2.2 mg/dl (1.7-2.5)
[2019-07-02 11:22] LABS: POTASSIUM,URINE RANDOM 36.3 mmol/L (25-125)
[2019-07-02 14:54] LABS: ANION GAP 4 (5-13); BLOOD UREA NITROGEN 12 mg/dl (7-20); CALCIUM 9.1 mg/dl (8.4-10.2); CARBON DIOXIDE 27 mmol/L (21-31); CHLORIDE 117 mmol/L (97-110); CREATININE 0.77 mg/dl (0.61-1.24); Estimated GFR > 60 mL/min (>60); GLUCOSE 173 mg/dl (70-220); POTASSIUM 3.5 mmol/L (3.5-5.1); SODIUM 148 mmol/L (135-144)
[2019-07-02] MEDS: HYDROCODONE/APAP (5/325) TAB PO ×2 (16:09→22:34)
[2019-07-02 21:31] LABS: POTASSIUM 3.4 mmol/L (3.5-5.1)
[2019-07-03] MEDS: IPRATROPIUM (NEB) 0.5 MG/2.5 ML AMP HHN ×3 (01:08→15:53)
[2019-07-03] MEDS: LEVALBUTEROL (NEB) 0.63 MG/3 ML AMP HHN ×3 (01:09→15:53)
[2019-07-03] MEDS: INSULIN ASPART [NOVOLOG] 3 ML PEN SC ×6 (01:37→20:23)
[2019-07-03] MEDS: ACCU-CHEK XX (01:46)
[2019-07-03] MEDS: POTASSIUM CHLORIDE 40 MEQ in DEXTROSE 5% 1,000 ML IV ×2 (03:42→11:17)
[2019-07-03] MEDS: LEVOFLOXACIN 500 MG TAB PO (05:32)
[2019-07-03 06:10] LABS: ADD MAN DIFF? NO
[2019-07-03 06:19] LABS: BASOPHILS % 0.2 % (0.0-2.0); EOSINOPHILS # 0.3 10^3/ul (0.0-0.5); EOSINOPHILS % 2.7 % (0.0-7.0); HEMATOCRIT 27.4 % (42.0-52.0); HEMOGLOBIN 8.1 g/dl (14.0-18.0); LYMPHOCYTES # 0.7 10^3/ul (0.8-2.9); LYMPHOCYTES % 5.7 % (15.0-51.0); MEAN CORPUSCULAR HEMOGLOBIN 28.9 pg (29.0-33.0); MEAN CORPUSCULAR HGB CONC 29.6 g/dl (32.0-37.0); MEAN CORPUSCULAR VOLUME 97.9 fl (82.0-101.0); MEAN PLATELET VOLUME 10.8 fl (7.4-10.4); MONOCYTE # 0.4 10^3/ul (0.3-0.9); MONOCYTES % 3.7 % (0.0-11.0); NEUTROPHIL # 10.3 10^3/ul (1.6-7.5); NUCLEATED RED BLOOD CELLS% 0.2 /100WBC (0.0-0.0); PLATELET COUNT 123 10^3/UL (140-415); POSITIVE DIFF @See below; RED CELL DISTRIBUTION WIDTH 15.5 % (11.5-14.5)
[2019-07-03 08:43] LABS: ANION GAP 2 (5-13); BLOOD UREA NITROGEN 8 mg/dl (7-20); CALCIUM 7.7 mg/dl (8.4-10.2); CARBON DIOXIDE 23 mmol/L (21-31); CHLORIDE 108 mmol/L (97-110); CREATININE 0.57 mg/dl (0.61-1.24); Estimated GFR > 60 mL/min (>60); MAGNESIUM 1.8 mg/dl (1.7-2.5); PHOSPHORUS 1.3 mg/dl (2.5-4.9); SODIUM 133 mmol/L (135-144)
[2019-07-03 08:45] LABS: POTASSIUM 8.1 mmol/L (3.5-5.1)
[2019-07-03 08:46] LABS: BAND NEUTROPHILS #M 1.4 10^3/ul (0.0-0.6); BAND NEUTROPHILS % (M) 12 % (0-4); EOSINOPHILS % (M) 2 % (0-7); ERYTHROBLAST% (NRBC) (M) 1 % (0-0); LYMPHOCYTES #M 0.1 10^3/ul (0.8-2.9); LYMPHOCYTES % (M) 1 % (15-51); MONOCYTE #M 0.4 10^3/ul (0.3-0.9); MONOCYTES % (M) 4 % (0-11); PLASMA CELLS #M 0.1 10^3/ul (0.0-0.0); PLASMAC%(M) 1 % (0); PLATELET ESTIMATE DECREASED; POLYCHROMASIA 1+ (0-0); SEG NEUT #M 9.8 10^3/ul (1.6-7.5); SEGMENTED NEUTROPHILS (M) % 80 % (39-77); SMUDGE%M 4 % (0-0)
[2019-07-03 08:47] LABS: GLUCOSE 564 mg/dl (70-220)
[2019-07-03] MEDS: HYDROCODONE/APAP (5/325) TAB PO ×3 (08:53→23:39)
[2019-07-03] MEDS: NEUTRA-PHOS 250 MG PACKET PO ×2 (08:53→20:09)
[2019-07-03] MEDS: SPIRONOLACTONE 50 MG TAB PO (08:53)
[2019-07-03] MEDS: FAMOTIDINE 20 MG TAB PO (08:53)
[2019-07-03] MEDS: DOCUSATE SODIUM 100 MG CAP PO (08:54)
[2019-07-03 09:10] LABS: ANION GAP 3 (5-13); BLOOD UREA NITROGEN 9 mg/dl (7-20); CALCIUM 8.9 mg/dl (8.4-10.2); CARBON DIOXIDE 26 mmol/L (21-31); CHLORIDE 116 mmol/L (97-110); CREATININE 0.68 mg/dl (0.61-1.24); Estimated GFR > 60 mL/min (>60); GLUCOSE 154 mg/dl (70-220); PHOSPHORUS 1.5 mg/dl (2.5-4.9); POTASSIUM 4.1 mmol/L (3.5-5.1); SODIUM 145 mmol/L (135-144)
[2019-07-03 12:57] LABS: ADD UMIC YES; UR ASCORBIC ACID NEGATIVE (NEGATIVE); UR BILIRUBIN (Dip) NEGATIVE (NEGATIVE); UR BLOOD (Dip) 2+ mg/dL (NEGATIVE); UR CLARITY CLEAR (CLEAR); UR COLOR YELLOW (YELLOW); UR GLUCOSE (Dip) 1+ mg/dL (NEGATIVE); UR KETONES (Dip) NEGATIVE (NEGATIVE); UR LEUKOCYTE ESTERASE (Dip) NEGATIVE Leu/ul (NEGATIVE); UR MUCUS FEW /HPF (NONE SEEN); UR NITRITE (Dip) NEGATIVE (NEGATIVE); UR RBC 65 /HPF (0-5); UR SPECIFIC GRAVITY (Dip) 1.009 (1.003-1.030); UR TOTAL PROTEIN (Dip) 1+ mg/dl (NEGATIVE); UR UROBILINOGEN (Dip) NEGATIVE (NEGATIVE); UR WBC 5 /HPF (0-5)
[2019-07-04] MEDS: IPRATROPIUM (NEB) 0.5 MG/2.5 ML AMP HHN ×4 (00:08→23:38)
[2019-07-04] MEDS: LEVALBUTEROL (NEB) 0.63 MG/3 ML AMP HHN ×4 (00:08→23:38)
[2019-07-04] MEDS: INSULIN ASPART [NOVOLOG] 3 ML PEN SC ×6 (01:00→20:57)
[2019-07-04] MEDS: ACCU-CHEK XX (01:37)
[2019-07-04] MEDS: POTASSIUM CHLORIDE 40 MEQ in DEXTROSE 5% 1,000 ML IV ×3 (01:39→20:25)
[2019-07-04] MEDS: LEVOFLOXACIN 500 MG TAB PO (05:37)
[2019-07-04 06:12] LABS: ADD MAN DIFF? NO
[2019-07-04 06:25] LABS: WHITE BLOOD COUNT 14.3 10^3/ul (4.8-10.8)
[2019-07-04 06:25] LABS: BASOPHIL # 0.1 10^3/ul (0.0-0.1); BASOPHILS % 0.4 % (0.0-2.0); EOSINOPHILS # 0.5 10^3/ul (0.0-0.5); EOSINOPHILS % 3.4 % (0.0-7.0); HEMATOCRIT 28.5 % (42.0-52.0); HEMOGLOBIN 8.7 g/dl (14.0-18.0); LYMPHOCYTES # 0.8 10^3/ul (0.8-2.9); LYMPHOCYTES % 5.4 % (15.0-51.0); MEAN CORPUSCULAR HEMOGLOBIN 29.2 pg (29.0-33.0); MEAN CORPUSCULAR HGB CONC 30.5 g/dl (32.0-37.0); MEAN CORPUSCULAR VOLUME 95.6 fl (82.0-101.0); MEAN PLATELET VOLUME 10.9 fl (7.4-10.4); MONOCYTE # 0.5 10^3/ul (0.3-0.9); MONOCYTES % 3.4 % (0.0-11.0); NEUTROPHIL # 12.2 10^3/ul (1.6-7.5); NEUTROPHILS % 85.4 % (39.0-77.0); NUCLEATED RED BLOOD CELLS% 0.3 /100WBC (0.0-0.0); PLATELET COUNT 145 10^3/UL (140-415); POSITIVE DIFF @See below; RED BLOOD COUNT 2.98 10^6/ul (4.70-6.10); RED CELL DISTRIBUTION WIDTH 15.7 % (11.5-14.5)
[2019-07-04 07:03] LABS: ANION GAP 5 (5-13); BLOOD UREA NITROGEN 10 mg/dl (7-20); CALCIUM 8.7 mg/dl (8.4-10.2); CARBON DIOXIDE 25 mmol/L (21-31); CHLORIDE 112 mmol/L (97-110); CREATININE 0.62 mg/dl (0.61-1.24); Estimated GFR > 60 mL/min (>60); GLUCOSE 135 mg/dl (70-220); SODIUM 142 mmol/L (135-144)
[2019-07-04 07:15] LABS: POTASSIUM 3.9 mmol/L (3.5-5.1)
[2019-07-04] MEDS: SPIRONOLACTONE 50 MG TAB PO (09:55)
[2019-07-04] MEDS: FAMOTIDINE 20 MG TAB PO (09:55)
[2019-07-04] MEDS: DOCUSATE SODIUM 10 MG/ML (10ML CUP) PO (09:56)
[2019-07-04] MEDS: NEUTRA-PHOS 250 MG PACKET PO ×2 (09:56→20:56)
[2019-07-04] MEDS: HYDROCODONE/APAP (5/325) TAB PO ×2 (10:54→17:44)
[2019-07-04 11:32] LABS: BAND NEUTROPHILS #M 3.5 10^3/ul (0.0-0.6); BAND NEUTROPHILS % (M) 25 % (0-4); EOSINOPHILS % (M) 4 % (0-7); LYMPHOCYTES #M 0.2 10^3/ul (0.8-2.9); LYMPHOCYTES % (M) 2 % (15-51); MONOCYTE #M 0.8 10^3/ul (0.3-0.9); MONOCYTES % (M) 6 % (0-11); MYELOCYTES #M 0.1 10^3/ul (0.0-0.0); MYELOCYTES % (M) 1 % (0-0); PLATELET ESTIMATE NORMAL; POLYCHROMASIA 1+ (0-0); SEG NEUT #M 9.4 10^3/ul (1.6-7.5); SEGMENTED NEUTROPHILS (M) % 62 % (39-77); SMUDGE%M 1 % (0-0)
[2019-07-05] MEDS: HYDROCODONE/APAP (5/325) TAB PO ×3 (00:07→15:32)
[2019-07-05] MEDS: ACCU-CHEK XX (02:00)
[2019-07-05] MEDS: LEVOFLOXACIN 500 MG TAB PO ×2 (06:00→09:00)
[2019-07-05] MEDS: POTASSIUM CHLORIDE 40 MEQ in DEXTROSE 5% 1,000 ML IV ×2 (06:35→17:54)
[2019-07-05] MEDS: LEVALBUTEROL (NEB) 0.63 MG/3 ML AMP HHN ×2 (07:31→16:00)
[2019-07-05] MEDS: IPRATROPIUM (NEB) 0.5 MG/2.5 ML AMP HHN ×2 (07:31→16:00)
[2019-07-05] MEDS: FAMOTIDINE 20 MG TAB PO (09:00)
[2019-07-05] MEDS: SPIRONOLACTONE 50 MG TAB PO (09:00)
[2019-07-05] MEDS: NEUTRA-PHOS 250 MG PACKET PO ×2 (09:00→21:00)
[2019-07-05] MEDS: DOCUSATE SODIUM 10 MG/ML (10ML CUP) PO (09:00)
[2019-07-05] MEDS: INSULIN ASPART [NOVOLOG] 3 ML PEN SC ×4 (09:46→21:00)
[2019-07-05 12:12] LABS: ALDOSTERONE 2 ng/dL
[2019-07-05] MEDS: morphine 2 MG INJ IV (19:51)
[2019-07-06] MEDS: LEVALBUTEROL (NEB) 0.63 MG/3 ML AMP HHN ×3 (00:02→16:36)
[2019-07-06] MEDS: IPRATROPIUM (NEB) 0.5 MG/2.5 ML AMP HHN ×3 (00:02→16:36)
[2019-07-06] MEDS: ACCU-CHEK XX (02:00)
[2019-07-06] MEDS: SOD CHLORIDE 0.9% 500 ML IV (02:46)
[2019-07-06] MEDS: HYDROCODONE/APAP (5/325) TAB PO ×3 (03:14→16:26)
[2019-07-06] MEDS: POTASSIUM CHLORIDE 40 MEQ in DEXTROSE 5% 1,000 ML IV (04:51)
[2019-07-06] MEDS: LEVOFLOXACIN 500 MG TAB PO (05:13)
[2019-07-06 05:32] LABS: ADD MAN DIFF? NO
[2019-07-06 05:43] LABS: BASOPHIL # 0.1 10^3/ul (0.0-0.1); BASOPHILS % 0.4 % (0.0-2.0); EOSINOPHILS # 0.4 10^3/ul (0.0-0.5); EOSINOPHILS % 3.1 % (0.0-7.0); HEMATOCRIT 26.5 % (42.0-52.0); LYMPHOCYTES # 0.8 10^3/ul (0.8-2.9); LYMPHOCYTES % 6.1 % (15.0-51.0); MEAN CORPUSCULAR HEMOGLOBIN 28.8 pg (29.0-33.0); MEAN CORPUSCULAR HGB CONC 30.2 g/dl (32.0-37.0); MEAN CORPUSCULAR VOLUME 95.3 fl (82.0-101.0); MEAN PLATELET VOLUME 10.3 fl (7.4-10.4); MONOCYTE # 0.5 10^3/ul (0.3-0.9); MONOCYTES % 3.8 % (0.0-11.0); NEUTROPHIL # 11.4 10^3/ul (1.6-7.5); NEUTROPHILS % 83.6 % (39.0-77.0); NUCLEATED RED BLOOD CELLS% 0.1 /100WBC (0.0-0.0); PLATELET COUNT 154 10^3/UL (140-415); POSITIVE DIFF @See below; RED BLOOD COUNT 2.78 10^6/ul (4.70-6.10); RED CELL DISTRIBUTION WIDTH 15.5 % (11.5-14.5)
[2019-07-06 05:43] LABS: WHITE BLOOD COUNT 13.6 10^3/ul (4.8-10.8)
[2019-07-06 06:03] LABS: ANION GAP 7 (5-13); BLOOD UREA NITROGEN 8 mg/dl (7-20); CALCIUM 8.4 mg/dl (8.4-10.2); CARBON DIOXIDE 21 mmol/L (21-31); CHLORIDE 106 mmol/L (97-110); Estimated GFR > 60 mL/min (>60); GLUCOSE 121 mg/dl (70-220); POTASSIUM 4.1 mmol/L (3.5-5.1); SODIUM 134 mmol/L (135-144)
[2019-07-06] MEDS: INSULIN ASPART [NOVOLOG] 3 ML PEN SC ×2 (07:50→11:40)
[2019-07-06] MEDS: NEUTRA-PHOS 250 MG PACKET PO (08:38)
[2019-07-06] MEDS: DOCUSATE SODIUM 10 MG/ML (10ML CUP) PO (08:38)
[2019-07-06] MEDS: FAMOTIDINE 20 MG TAB PO (08:38)
[2019-07-06] MEDS: SPIRONOLACTONE 50 MG TAB PO (08:38)
[2019-07-06] MEDS: morphine 2 MG INJ IV (11:29)
[2019-07-06] MEDS: HEPARIN (100 UNITS/ML) 5 ML SYG CATHETER (16:58)
[2019-07-07 14:37] LABS: RENIN, PLASMA 0.34 ng/mL/h (0.25-5.82)
== END 2019-07-06 17:33 | disposition hospice, home (50) | DRG 870 ==
LOC: 6WM 07-01 02:48 → E/R 12:03 → MS1 07-04 19:00 → ICU 13:38
PROVIDERS: Internal Medicine
PROC: 5A1955Z Respiratory Ventilation, Greater than 96 Consecutive Hours (ICD-10-PCS; principal; 2019-06-25)
PROC: 0BH17EZ Insertion of Endotracheal Airway into Trachea, Via Natural or Artificial Opening (ICD-10-PCS; 2019-06-25)
PROC: 30233N1 Transfusion of Nonautologous Red Blood Cells into Peripheral Vein, Percutaneous Approach (ICD-10-PCS; 2019-06-28)
PROC: 02HV33Z Insertion of Infusion Device into Superior Vena Cava, Percutaneous Approach (ICD-10-PCS; 2019-06-29)
PROC: B548ZZA Ultrasonography of Superior Vena Cava, Guidance (ICD-10-PCS; 2019-06-29)
DX: A41.9 Sepsis, unspecified organism (principal); J18.9 Pneumonia, unspecified organism; J96.01 Acute respiratory failure with hypoxia; G93.41 Metabolic encephalopathy; C34.90 Malignant neoplasm of unspecified part of unspecified bronchus or lung; C79.70 Secondary malignant neoplasm of unspecified adrenal gland; C79.51 Secondary malignant neoplasm of bone; E87.0 Hyperosmolality and hypernatremia; N17.9 Acute kidney failure, unspecified; E44.0 Moderate protein-calorie malnutrition; D63.8 Anemia in other chronic diseases classified elsewhere; D64.81 Anemia due to antineoplastic chemotherapy; E87.6 Hypokalemia; E83.52 Hypercalcemia; E83.39 Other disorders of phosphorus metabolism; E11.9 Type 2 diabetes mellitus without complications; E88.81 Metabolic syndrome and other insulin resistance; J44.9 Chronic obstructive pulmonary disease, unspecified; L89.150 Pressure ulcer of sacral region, unstageable; R62.7 Adult failure to thrive; R13.10 Dysphagia, unspecified; Z68.23 Body mass index [BMI] 23.0-23.9, adult; Z87.891 Personal history of nicotine dependence; Z79.52 Long term (current) use of systemic steroids
CPT/HCPCS: 31500; 36415; 36430; 36573; 36600; 70450; 70551; 71045; 71260; 72131; 73510; 74176; 80048; 80053; 81001; 81003; 82043; 82088; 82270; 82306; 82607; 82652; 82746; 82803; 82962; 83036; 83605; 83690; 83735; 83970; 84100; 84132; 84133; 84145; 84155; 84244; 84300; 84443; 84480; 84484; 85014; 85018; 85025; 85610; 85730; 86592; 86850; 86900; 86901; 86920; 87040-91; 87081; 87086; 87400; 92526; 92610; 93005; 94002; 94003; 94640; 94664; 94770; 96365; 96375; 97110; 97163; 97530; 99285-25